=== PATIENT | male | born 1985 | race Caucasian/White ===

== ENCOUNTER 2018-03-02 18:29 | Inpatient (IN) ==
--- NOTE | 2018-03-02 19:05 | Emergency Department Note ---
Disposition Clinical Impression: Suicidal ideation Disposition: Still a Patient Condition: Fair Psych HPI - General Chief Complaint: ED Psychiatric Symptoms Stated Complaint: SI Time Seen by Provider: 03/02/18 18:50 Source: patient Mode of arrival: ambulatory Limitations: no limitations Nursing Notes Reviewed: Yes Vital Signs Reviewed: Yes - History of Present Illness HPI Narrative: 32-year-old male with a history of depression as well as suicide ideation the past presents for evaluation of suicidal ideations. Patient states that she has thought of killing himself with a gun. There is guns at home. Patient states he has been depressed over the past 4 days. Patient states he has a history of drug use in the past and was in rehabilitation until October. Patient states he been clean from cocaine since October. Denies any other drugs. Patient denies any homicidal ideation. Denies any hallucinations or delusions. Patient denies any chest pain shortness of breath. No fevers. No abdominal pain. No nausea or vomiting. Patient states that he has been on depression medications feels that there are not helping. Patient states he did have a knee scope done last week. States that he had a left knee that was drained by his orthopedic surgeon yesterday. There is no concerns for infection. Patient denies any increasing pain in that knee. Denies any pain with movement of the knee. - Related Data Home Medications Medication Instructions Recorded Confirmed Buspirone HCl 03/02/18 Cymbalta 03/02/18 Lisinopril 03/02/18 Naltrexone 03/02/18 traZODone 03/02/18 Allergies Allergy/AdvReac Type Severity Reaction Status Date / Time No Known Allergies Allergy Verified 03/02/18 18:34 All systems ED: reviewed and negative except as stated. Constitutional: Denies: fever Cardiovascular: Denies: chest pain Respiratory: Denies: cough, dyspnea Gastrointestinal: Denies: abdominal pain, nausea, vomiting Psychiatric: Reports: as per HPI Past Medical History - Past Medical History Source: patient Medical history: Reports: hypertension Psychiatric history: Reports: anxiety, depression - Social History Smoking Status: Never smoker Smokeless Tobacco Status: Yes Alcohol use: Reports: occasionally Drug use: Reports: none Physical Exam - General Limitations: no limitations General appearance: alert, in no apparent distress - Head Head exam: atraumatic - Eye Eye exam: Present: normal appearance, PERRL, EOMI, mydriasis - ENT ENT exam: normal exam, mucous membranes moist - Neck Neck exam: Present: normal inspection, trachea midline - Chest Chest inspection: Present: normal inspection, symmetric chest wall rise - Respiratory Respiratory exam: Present: normal lung sounds bilaterally. Absent: respiratory distress - Cardiovascular Cardiovascular exam: Present: regular rate, normal rhythm. Absent: systolic murmur - Abdominal Exam Abdominal exam: Present: soft, Non-Tender - Extremities Exam Extremities exam: Present: normal inspection, other (No signs of cutting or IV drug use). Absent: pedal edema - Expanded Lower Extremity Exam Hip/Pelvis exam: Present: normal inspection. Absent: tenderness Upper leg exam: Present: normal inspection. Absent: tenderness Knee exam: Present: other (No increased pain with movement of the knees. Left effusion of the left knee. No erythema.) Lower leg exam: Present: normal inspection. Absent: tenderness Ankle exam: Present: normal inspection. Absent: tenderness Foot/toe exam: Present: normal inspection. Absent: tenderness - Back Exam Back exam: Present: normal inspection - Neurological Exam Neurological exam: Present: alert - Skin Skin exam: Present: warm, dry, intact, normal color Course Course Narrative: Patient seen and examined. Patient's resting comfortably. Patient's vitals are stable. Patient will be medically cleared. Patient will get pink slipped given his concerns of suicidal ideation. Patient will evaluate [facility]. Disposition pending. - Reevaluation(s) Reevaluation #1: Patient states that he did have his knee drained by Dr. Girard yesterday. Patient is not on any antibiotics. We will attempt to gather the results of that arthrocentesis. Time: 20:13 - Consultations Consultation #1: Discussed the case with [facility]. Time: 19:55 Consultation #2: Patient will be admitted to [facility]. Time: 20:53 Vital Signs Temperature 99.3 F 03/02/18 18:31 Pulse Rate 97 03/02/18 18:31 Respiratory Rate 16 03/02/18 18:31 Blood Pressure 135/92 03/02/18 18:31 O2 Sat by Pulse Oximetry 98 03/02/18 18:31 Temperature 99.3 F 03/02/18 18:42 Pulse Rate 97 03/02/18 18:42 Respiratory Rate 16 03/02/18 18:42 Blood Pressure 135/92 03/02/18 18:42 O2 Sat by Pulse Oximetry 98 07/21/18 18:42 Oxygen Delivery Oxygen Delivery Room Air Psych - MDM Narrative Medical decision making narrative: Patient presents with a concerning history of suicidal ideation. Does have a planned using a gun. Patient does have guns at home. Patient is not able to elaborate on his depression during my exam. Patient labs reviewed. Patient does have a leukocytosis which is been present in the past. Patient does not have any clinical signs of pneumonia or any systemic infection. Patient does have a history of recent drainage of the left knee however the patient does not appear to clinically have septic arthritis of the patient can range the knees and full range of motion. Denies any increasing pain in the knees. At this point the white count is elevated but is nonspecific. Patient clinically as well and medically cleared and evaluated by psychiatry. - Lab Data Result diagrams: 03/02/18 19:10 03/02/18 19:10 Lab Results 03/02/18 03/02/18 03/02/18 Range/Units 19:05 19:05 19:10 WBC 17.8 H (4.3-11.1) K/mcL RBC 5.76 H (4.19-5.50) M/mcL Hgb 16.4 (12.9-16.9) g/dL Hct 47.3 (37.5-50.1) % MCV 82.1 L (83.0-100.0) fL MCH 28.5 (28.0-33.3) pg MCHC 34.7 (31.6-35.5) g/dL RDW 12.3 (11.5-14.5) % Plt Count 335 (140-400) K/mcL MPV 9.3 L (9.4-12.4) fL Immature Gran % 0.7 (0-4) % Seg Neutrophils % 64.0 % Lymphocytes % 26.9 % Monocytes % 7.3 % Eosinophils % 0.8 % Basophils % 0.3 % Neutrophils # 11.4 H (1.6-8.9) K/mcL Lymphocytes # 4.8 H (0.6-4.6) K/mcL Monocytes # 1.3 (0.0-1.3) K/mcL Eosinophils # 0.2 (0.0-0.6) K/mcL Basophils # 0.1 (0.0-0.2) K/mcL Sodium (136-145) mEq/L Potassium (3.5-5.1) mEq/L Chloride (98-107) mEq/L Carbon Dioxide (23-29) mEq/L BUN (6-20) mg/dL Creatinine (0.70-1.30) mg/dL Est GFR ( Amer) (> 60) Est GFR (Non-Af Amer) (> 60) BUN/Creatinine Ratio (6-26) Glucose (70-105) mg/dL Calculated Osmolality (280-300) Calcium (8.6-10.3) mg/dL Urine Color Dark Yellow (Yellow) Urine Clarity Clear (Clear) Urine pH 6.0 (5.0-8.0) pH Units Ur Specific Crosby > 1.030 H (1.010-1.025) Urine Protein Trace (Neg-Trace) mg/dL Urine Glucose (UA) Normal (Normal) mg/dL Urine Ketones Negative (Negative) mg/dL Urine Blood Negative (Negative) Urine Nitrite Negative (Negative) Urine Bilirubin Negative (Negative) Urine Urobilinogen Normal (Normal) mg/dL Ur Leukocyte Esterase Negative (Negative) Urine Microscopic RBC 3-5 H (0-3) per hpf Urine Microscopic WBC 0-3 (0-3) per hpf Ur Squamous Epith Cells Moderate H (None-Few) per lpf Urine Bacteria None Seen (None-Few) per hpf Hyaline Casts None Seen (None-Few) per lpf Salicylates (15.0-30.0) mg/dL Urine Opiates Screen Negative (Ccagjs=534) ng/mL Acetaminophen (10-20) mcg/mL Ur Barbiturates Screen Negative (Pqbdac=783) ng/mL Ur Phencyclidine Scrn Negative (Cutoff=25) ng/mL Ur Amphetamines Screen Negative (Eyuzus=6260) ng/mL U Benzodiazepines Scrn Negative (Xgkaak=309) ng/mL Urine Cocaine Screen Negative (Cutoff= 300) ng/mL U Marijuana (THC) Screen Negative (Cutoff = 50) ng/mL Ur Drug Screen Interp See Below Ethyl Alcohol (Less than 10) mg/dL 03/02/18 Range/Units 19:10 WBC (4.3-11.1) K/mcL RBC (4.19-5.50) M/mcL Hgb (12.9-16.9) g/dL Hct (37.5-50.1) % MCV (83.0-100.0) fL MCH (28.0-33.3) pg MCHC (31.6-35.5) g/dL RDW (11.5-14.5) % Plt Count (140-400) K/mcL MPV (9.4-12.4) fL Immature Gran % (0-4) % Seg Neutrophils % % Lymphocytes % % Monocytes % % Eosinophils % % Basophils % % Neutrophils # (1.6-8.9) K/mcL Lymphocytes # (0.6-4.6) K/mcL Monocytes # (0.0-1.3) K/mcL Eosinophils # (0.0-0.6) K/mcL Basophils # (0.0-0.2) K/mcL Sodium 136 (136-145) mEq/L Potassium 3.8 (3.5-5.1) mEq/L Chloride 104 (98-107) mEq/L Carbon Dioxide 25 (23-29) mEq/L BUN 17 (6-20) mg/dL Creatinine 1.07 (0.70-1.30) mg/dL Est GFR ( Amer) > 60 (> 60) Est GFR (Non-Af Amer) > 60 (> 60) BUN/Creatinine Ratio 16 (6-26) Glucose 98 (70-105) mg/dL Calculated Osmolality 284 (280-300) Calcium 9.4 (8.6-10.3) mg/dL Urine Color (Yellow) Urine Clarity (Clear) Urine pH (5.0-8.0) pH Units Ur Specific [place] (1.010-1.025) Urine Protein (Neg-Trace) mg/dL Urine Glucose (UA) (Normal) mg/dL Urine Ketones (Negative) mg/dL Urine Blood (Negative) Urine Nitrite (Negative) Urine Bilirubin (Negative) Urine Urobilinogen (Normal) mg/dL Ur Leukocyte Esterase (Negative) Urine Microscopic RBC (0-3) per hpf Urine Microscopic WBC (0-3) per hpf Ur Squamous Epith Cells (None-Few) per lpf Urine Bacteria (None-Few) per hpf Hyaline Casts (None-Few) per lpf Salicylates < 2.5 L (15.0-30.0) mg/dL Urine Opiates Screen (Wqynfo=657) ng/mL Acetaminophen < 10 L (10-20) mcg/mL Ur Barbiturates Screen (Ccceux=018) ng/mL Ur Phencyclidine Scrn (Cutoff=25) ng/mL Ur Amphetamines Screen (Jgntod=0770) ng/mL U Benzodiazepines Scrn (Tkhyje=737) ng/mL Urine Cocaine Screen (Cutoff= 300) ng/mL U Marijuana (THC) Screen (Cutoff = 50) ng/mL Ur Drug Screen Interp Ethyl Alcohol < 10 (Less than 10) mg/dL Psychiatric Medical Clearance - Medical Clearance Checklist Does the patient have a NEW psychiatric condition?: No Any abnormalities indicating possible medical illness?: No Any history of medical issues?: Yes Medical History: No Social History Section defined Any abnormal vital signs prior to transfer?: No Current Vitals: Last Vital Signs Temp 99.3 F 03/02/18 18:42 Pulse 97 03/02/18 18:42 Resp 16 03/02/18 18:42 BP 135/92 03/02/18 18:42 Pulse Ox 98 03/02/18 18:42 Is the patient intoxicated or cognitively impaired?: No Psychiatric Lab Panel: Drug Levels and Toxicity 03/02/18 03/02/18 19:05 19:10 Urine Opiates Screen Negative Acetaminophen < 10 L Ur Barbiturates Screen Negative Ur Phencyclidine Scrn Negative Ur Amphetamines Screen Negative U Benzodiazepines Scrn Negative Urine Cocaine Screen Negative U Marijuana (THC) Screen Negative Ethyl Alcohol < 10 Any abnormalities on the physical exam?: No Any abnormal labs?: No Abnormal Labs: Abnormal lab results WBC 17.8 K/mcL (4.3-11.1) H 03/02/18 19:10 RBC 5.76 M/mcL (4.19-5.50) H 03/02/18 19:10 MCV 82.1 fL (83.0-100.0) L 03/02/18 19:10 MPV 9.3 fL (9.4-12.4) L 03/02/18 19:10 Neutrophils # 11.4 K/mcL (1.6-8.9) H 03/02/18 19:10 Lymphocytes # 4.8 K/mcL (0.6-4.6) H 03/02/18 19:10 Ur Specific Crosby > 1.030 (1.010-1.025) H 03/02/18 19:05 Urine Microscopic RBC 3-5 per hpf (0-3) H 03/02/18 19:05 Ur Squamous Epith Cells Moderate per lpf (None-Few) H 03/02/18 19:05 Salicylates < 2.5 mg/dL (15.0-30.0) L 03/02/18 19:10 Acetaminophen < 10 mcg/mL (10-20) L 03/02/18 19:10 Does the patient require durable medical equiptment?: No Is the patient ambulatory?: Yes Is the patient a fall risk?: No Has the patient been medically cleared?: Yes Any acute medical condition require Tx prior to transfer?: No Attestation Statement - Attestation Attestation: I examined this patient and my medical decision-making was reviewed with the Resident Physician.Dr. Nunes. I agree with the documented findings, disposition and treatment plan as described except to the extent set forth below. Patient is a 32-year-old white male with a history of depression and anxiety who presents the emergency department with suicidal ideation with plan to shoot himself in the head. Patient states that he recently was discharged from drug redilatation from cocaine and has been doing well in regards to his substance abuse history. Patient states he started seeing a new psychiatrist and they have been making multiple changes with this medications and feels that since that time he has been having worsening depression and anxiety and terrible insomnia. Patient denies any hallucinations delusions. I agree with patient's physical exam findings as documented. Vital signs are stable patient's in no acute distress. Patient had full lab evaluation for medical clearance which showed a leukocytosis but no other abnormalities were noted. Patient was evaluated by one a and deemed that inpatient treatment would be beneficial for him. Hodges slip had been signed and placed on the chart medical clearance and in he will be admitted to 1 a for further psychiatric evaluation.
[2018-03-02 19:15] LABS: Bilirubin,Urine Negative (Negative); Blood,Urine Negative (Negative); Clarity,Urine Clear (Clear); Color,Urine Dark Yellow (Yellow); Glucose,Urine (UA) Normal (Normal); Ketones,Urine Negative (Negative); Leukocyte Esterase,Urine Negative (Negative); Nitrite,Urine Negative (Negative); Protein,Urine Trace mg/dL (Neg-Trace); Specific Gravity,Urine > 1.030 (1.010-1.025); Urobilinogen,Urine Normal (Normal)
[2018-03-02 19:19] LABS: Bacteria,Urine None Seen per hpf (None-Few); Hyaline Casts,Urine None Seen per lpf (None-Few); Squamous Epithelial Cell,Urine Moderate per lpf (None-Few); WBC,Urine 0-3 per hpf (0-3)
[2018-03-02 19:20] LABS: Basophils # 0.1 K/mcL (0.0-0.2); Basophils % 0.3 %; Eosinophils # 0.2 K/mcL (0.0-0.6); Eosinophils % 0.8 %; Hematocrit 47.3 % (37.5-50.1); Hemoglobin 16.4 g/dL (12.9-16.9); Immature Granulocytes % 0.7 % (0-4); Lymphocytes # 4.8 K/mcL (0.6-4.6); Lymphocytes % 26.9 %; Mean Corpuscular HGB Conc 34.7 g/dL (31.6-35.5); Mean Corpuscular Hemoglobin 28.5 pg (28.0-33.3); Mean Corpuscular Volume 82.1 fL (83.0-100.0); Mean Platelet Volume 9.3 fL (9.4-12.4); Monocytes # 1.3 K/mcL (0.0-1.3); Monocytes % 7.3 %; Neutrophils # 11.4 K/mcL (1.6-8.9); Platelet Count 335 K/mcL (140-400); Red Blood Count 5.76 M/mcL (4.19-5.50); Red Cell Distribution Width 12.3 % (11.5-14.5)
[2018-03-02 19:24] LABS: Amphetamine Screen,Urine Negative ng/mL (Cutoff=1000); Barbiturate Screen,Urine Negative ng/mL (Cutoff=200); Benzodiazepines Screen,Urine Negative ng/mL (Cutoff=200); Cannabinoid Screen,Urine Negative ng/mL (Cutoff = 50); Cocaine Screen,Urine Negative ng/mL (Cutoff= 300); Opiate Screen,Urine Negative ng/mL (Cutoff=300); Phencyclidine Screen,Urine Negative ng/mL (Cutoff=25)
[2018-03-02 19:43] LABS: Acetaminophen < 10 mcg/mL (10-20); BUN/Creatinine Ratio 16 (6-26); Blood Urea Nitrogen 17 mg/dL (6-20); Calcium 9.4 mg/dL (8.6-10.3); Carbon Dioxide 25 mEq/L (23-29); Chloride 104 mEq/L (98-107); Ethanol < 10 mg/dL (Less than 10); Glucose 98 mg/dL (70-105); Osmolality,Calculated 284 (280-300); Potassium 3.8 mEq/L (3.5-5.1); Salicylate < 2.5 mg/dL (15.0-30.0); Sodium 136 mEq/L (136-145); eGFR For African Americans > 60 (> 60); eGFR For Non-African Americans > 60 (> 60)
[2018-03-02] MEDS ORDERED: Haloperidol Lactate 5 MG/ML VIAL IM PRN (21:04)
[2018-03-02] MEDS ORDERED: MOM Conc 10 ML UD.LIQ PO PRN (21:04)
[2018-03-02] MEDS ORDERED: hydrOXYzine pamoate 25 MG CAPSULE PO PRN (21:04)
[2018-03-02] MEDS ORDERED: Mag Hydrox/Al Hydrox/Simeth 30 ML UDC PO PRN (21:04)
[2018-03-02] MEDS ORDERED: *HR* LORazepam 1 MG TABLET PO PRN (21:04)
[2018-03-02] MEDS ORDERED: *HR* LORazepam 2 MG/ML VIAL IM PRN (21:04)
[2018-03-02] MEDS ORDERED: traZODone 50 MG TABLET PO PRN (21:04)
[2018-03-02] MEDS: Ibuprofen 400 MG TABLET PO PRN (22:04)
[2018-03-03] MEDS: Ibuprofen 400 MG TABLET PO PRN ×2 (09:22→16:14)
--- NOTE | 2018-03-03 10:32 | Psychiatry History & Physical ---
Date of Encounter: 03/03/18 Time of Encounter: 10:29 History of Present Illness Patient Stated Chief Complaint: Suicidal ideation Medicare Admission Attestation: For traditional Medicare patients the provided hospital inpatient services are reasonable and necessary and in the case of services not specified as inpatient -only under 42 CFR 419.22 (n), that they are appropriately provided as inpatient services in accordance 42 CFR 412.3. For Critical Access Hospital the patient may reasonably be expected to be discharged or transferred to a hospital within 96 hours after admission to the Critical Access Hospital. Admitted From: Emergency Dept History of Present Illness: Mr. Winter is a 32 year old male admitted from the emergency department for suicidal ideation. Patient completed drug rehabilitation in October 2017 and maintained sobriety from cocaine. He reports have guilty feeling about his addiction and how it affected his family. Currently he does some farm work and also spent time with his children and maintaining his outpatient treatment. He reported poor sleep, mood swings and suicidal ideation. UDS was negative. No history of suicide attempts. Past Med Surg Social Fam HX - Past Medical History Medical history: hypertension - Past Psychiatric History Psychiatric history: Reports: bipolar - Social History Smoking Status: Never smoker Smokeless Tobacco Status: Yes Alcohol use: occasionally Drug use: none - Family History Mother Hx Family Cancer: Yes (Melonoma) Medications & Allergies Buspirone HCl [Buspar] 15 mg PO BID 03/02/18 [History] Duloxetine HCl [Cymbalta] 60 mg PO DAILY 03/02/18 [History] Lisinopril [Zestril] 5 mg PO DAILY 03/02/18 [History] Naltrexone HCl [Naltrexone HCl] 25 mg PO DAILY 03/02/18 [History] traZODone [TraZODone] 50 mg PO HS 03/02/18 [History] 3 Allergy/AdvReac Type Severity Reaction Status Date / Time No Known Allergies Allergy Verified 03/02/18 18:34 Review of Systems Psychiatric: Reports: abnormal sleep pattern, suicidal ideation, mood swings Exam - HEENT Head exam IM: Present: atraumatic Eye exam IM: Present: EOMI, normal appearance, PERRL ENT exam IM: Present: normal exam - Neurological Neurological exam: Present: CN II-XII intact - Respiratory Respiratory exam IM: Present: CTAB - GI/Abdominal GI/Abdominal exam IM: Present: normal bowel sounds, soft. Absent: tenderness - Extremities Extremities exam IM: Present: full ROM - Skin Skin exam IM: Present: dry, warm - Constitutional Vitals: Temp Pulse Resp BP Pulse Ox 98.0 F 90 18 134/100 98 03/02/18 21:39 03/02/18 21:39 03/02/18 21:39 03/02/18 21:39 03/02/18 18:42 General appearance: age & developmentally appropriate, well-groomed, well- nourished, average - Musculoskeletal Gait: normal Station: relaxed Strength & Tone: normal for patient - Psychiatric Patient Orientation: Yes Person, Yes Time, Yes Place Level of alertness: Alert Behavior: calm, cooperative Psychomotor activity: Slowed Eye Contact: Minimal Contact Mood Description: Euthymic/stable, Depressed, Anxious Affect description: congruent with mood, constricted Speech Volume: Normal Speech pattern: normal rate, normal rhythm, normal tone, fluent, spontaneous Language & Vocabulary: consistent with education Thought Process: Linear, Goal Oriented Thought Content: Yes Suicidal ideation, No Homicidal ideation, No Overt delusions Perceptual Disturbances: No Auditory hallucinations, No Visual hallucinations Attention Span Ability: Capable of Focused Attention Memory Description: Grossly Intact Patient Reliability: Reliable Historian Fund of knowledge: Yes abstraction ability, Yes average, Yes aware of current events Intelligence Estimate: Average Judgment: Limited Insight: Partial Results - Labs Labs: Laboratory Last Values WBC 17.8 K/mcL (4.3-11.1) H 03/02/18 19:10 RBC 5.76 M/mcL (4.19-5.50) H 03/02/18 19:10 Hgb 16.4 g/dL (12.9-16.9) 03/02/18 19:10 Hct 47.3 % (37.5-50.1) 03/02/18 19:10 MCV 82.1 fL (83.0-100.0) L 03/02/18 19:10 MCH 28.5 pg (28.0-33.3) 03/02/18 19:10 MCHC 34.7 g/dL (31.6-35.5) 03/02/18 19:10 RDW 12.3 % (11.5-14.5) 03/02/18 19:10 Plt Count 335 K/mcL (140-400) 03/02/18 19:10 MPV 9.3 fL (9.4-12.4) L 03/02/18 19:10 Immature Gran % 0.7 % (0-4) 03/02/18 19:10 Seg Neutrophils % 64.0 % 03/02/18 19:10 Lymphocytes % 26.9 % 03/02/18 19:10 Monocytes % 7.3 % 03/02/18 19:10 Eosinophils % 0.8 % 03/02/18 19:10 Basophils % 0.3 % 03/02/18 19:10 Neutrophils # 11.4 K/mcL (1.6-8.9) H 03/02/18 19:10 Lymphocytes # 4.8 K/mcL (0.6-4.6) H 03/02/18 19:10 Monocytes # 1.3 K/mcL (0.0-1.3) 03/02/18 19:10 Eosinophils # 0.2 K/mcL (0.0-0.6) 03/02/18 19:10 Basophils # 0.1 K/mcL (0.0-0.2) 03/02/18 19:10 Sodium 136 mEq/L (136-145) 03/02/18 19:10 Potassium 3.8 mEq/L (3.5-5.1) 03/02/18 19:10 Chloride 104 mEq/L (98-107) 03/02/18 19:10 Carbon Dioxide 25 mEq/L (23-29) 03/02/18 19:10 BUN 17 mg/dL (6-20) 03/02/18 19:10 Creatinine 1.07 mg/dL (0.70-1.30) 03/02/18 19:10 Est GFR ( Amer) > 60 (> 60) 03/02/18 19:10 Est GFR (Non-Af Amer) > 60 (> 60) 03/02/18 19:10 BUN/Creatinine Ratio 16 (6-26) 03/02/18 19:10 Glucose 98 mg/dL (70-105) 03/02/18 19:10 Calculated Osmolality 284 (280-300) 03/02/18 19:10 Calcium 9.4 mg/dL (8.6-10.3) 03/02/18 19:10 Urine Color Dark Yellow (Yellow) 03/02/18 19:05 Urine Clarity Clear (Clear) 03/02/18 19:05 Urine pH 6.0 pH Units (5.0-8.0) 03/02/18 19:05 Ur Specific [place] > 1.030 (1.010-1.025) H 03/02/18 19:05 Urine Protein Trace mg/dL (Neg-Trace) 03/02/18 19:05 Urine Glucose (UA) Normal mg/dL (Normal) 03/02/18 19:05 Urine Ketones Negative mg/dL (Negative) 03/02/18 19:05 Urine Blood Negative (Negative) 03/02/18 19:05 Urine Nitrite Negative (Negative) 03/02/18 19:05 Urine Bilirubin Negative (Negative) 03/02/18 19:05 Urine Urobilinogen Normal mg/dL (Normal) 03/02/18 19:05 Ur Leukocyte Esterase Negative (Negative) 03/02/18 19:05 Urine Microscopic RBC 3-5 per hpf (0-3) H 03/02/18 19:05 Urine Microscopic WBC 0-3 per hpf (0-3) 03/02/18 19:05 Ur Squamous Epith Cells Moderate per lpf (None-Few) H 03/02/18 19:05 Urine Bacteria None Seen per hpf (None-Few) 03/02/18 19:05 Hyaline Casts None Seen per lpf (None-Few) 03/02/18 19:05 Salicylates < 2.5 mg/dL (15.0-30.0) L 03/02/18 19:10 Urine Opiates Screen Negative ng/mL (Sbomfy=477) 03/02/18 19:05 Acetaminophen < 10 mcg/mL (10-20) L 03/02/18 19:10 Ur Barbiturates Screen Negative ng/mL (Nqsghd=919) 03/02/18 19:05 Ur Phencyclidine Scrn Negative ng/mL (Cutoff=25) 03/02/18 19:05 Ur Amphetamines Screen Negative ng/mL (Ksrgda=8488) 03/02/18 19:05 U Benzodiazepines Scrn Negative ng/mL (Fmmkqk=758) 03/02/18 19:05 Urine Cocaine Screen Negative ng/mL (Cutoff= 300) 03/02/18 19:05 U Marijuana (THC) Screen Negative ng/mL (Cutoff = 50) 03/02/18 19:05 Ur Drug Screen Interp See Below 03/02/18 19:05 Ethyl Alcohol < 10 mg/dL (Less than 10) 03/02/18 19:10 Assessment and Plan (1) Suicidal ideation Current visit: Yes Status: Acute Plan: Admit inpatient for safety and stabilization, Close observation, Suicide Precautions per unit protocol, Encourage participation in unit milieu, Group Therapy, Monitor sleep, Monitor appetite Additional Plan: Increase trazodone to 100 mg at bedtime and starte Depakote 250 mg twice daily. Risks, benefits, side effects, alternatives discussed w/pt: Yes Patient agreeable to treatment: Yes
[2018-03-03] MEDS: Divalproex (12 HR) 250 MG TABLET PO SCH (20:00)
[2018-03-03] MEDS: traZODone 50 MG TABLET PO SCH (20:01)
[2018-03-04] MEDS: Ibuprofen 400 MG TABLET PO PRN ×2 (03:24→11:02)
[2018-03-04] MEDS: NALTREXONE HCL 50 MG TABLET PO SCH (09:10)
[2018-03-04] MEDS: Divalproex (12 HR) 250 MG TABLET PO SCH ×2 (09:10→20:14)
--- NOTE | 2018-03-04 10:55 | Psychiatry Progress Note ---
Date of Encounter: 03/04/18 Time of Encounter: 10:53 Subjective Interval history: Patient seen and evaluated. Patient reports that since his medication change she reports he is feeling a little better he reports that he is not as anxious and depressed as he was when he first came in. Patient her inquired about when his discharge would be an discussed with the patient that he was having suicidal ideations yesterday patient did admit to this and was agreeable to further his hospitalization stay until he felt stable for discharge. Patient reports that he is tolerating current medication with no problems. Denied any safety concerns at the time of evaluation. Review of Systems Psychiatric: Reports: abnormal sleep pattern, suicidal ideation, difficulty concentrating Results - Vital Signs Vital Signs: Temp Pulse Resp BP Pulse Ox 97.5 F L 88 16 130/93 98 03/03/18 20:11 03/03/18 20:11 03/03/18 20:11 03/03/18 20:11 03/02/18 18:42 Assessment and Plan (1) Depression Current visit: Yes Status: Acute Plan: Continue hospitalization, Encourage participation in unit milieu, Group Therapy, Monitor sleep, Monitor appetite Risks, benefits, side effects, alternatives discussed w/pt: Yes Patient agreeable to treatment: Yes Qualifiers: Depression Type: major depressive disorder Major depression recurrence: recurrent Active/Remission status: currently active Major depression episode severity: moderate Qualified Code(s): F33.1 - Major depressive disorder, recurrent, moderate Consult Discharge Plan - Plan Additional Instructions: - continue current meds Referrals: NONE,PCP [Primary Care Provider] - Mike Hendrix MD [Family Provider] - Psychiatry Exam - Constitutional Vitals: Temp Pulse Resp BP Pulse Ox 97.5 F L 88 16 130/93 98 03/03/18 20:11 03/03/18 20:11 03/03/18 20:11 03/03/18 20:11 03/02/18 18:42 General appearance: age & developmentally appropriate, well-nourished - Musculoskeletal Gait: normal Strength & Tone: normal for patient - Psychiatric Patient Orientation: Yes Person, Yes Time, Yes Place, Yes Circumstance Level of alertness: Alert Behavior: nervous, anxious Psychomotor activity: Normal Eye Contact: Maintains Eye Contact Mood Description: Anxious, Labile Affect description: flat Speech Volume: Normal Speech pattern: normal rate, normal rhythm, normal tone Language & Vocabulary: consistent with education Thought Process: Intact, Logical, Linear, Goal Oriented Thought Content: Yes Suicidal ideation Attention Span Ability: Capable of Focused Attention, Capable of Sustained Attention Memory Description: Grossly Intact Patient Reliability: Reliable Historian Intelligence Estimate: Average Judgment: Fair Insight: Full
[2018-03-04] MEDS: Ibuprofen 400 MG TABLET PO SCH ×4 (13:59→20:13)
--- NOTE | 2018-03-04 15:31 | Orthopedic Consult Note ---
Date of Encounter: 03/04/18 Time of Encounter: 15:28 Assessment and Plan (1) Knee effusion, left Current Visit: Yes Status: Acute The diagnosis and treatment plan were discussed with the patient. He does have a recurrent knee effusion but this appears benign. He is no erythema or drainage and no pain with short arc range of motion of the knee. As he did have a recent surgery with Dr. Woodward, I will hold off on a repeat aspiration and have him follow-up with Dr. Woodward as scheduled. If he starts having erythema or drainage from the knee or other signs concerning for infection then we will reevaluate at that time. Recommend ice elevation and compression for his symptoms. History of Present Illness HPI: Mr. Winter is a 32 year old male admitted for SI with left knee swelling. Patient had a left knee arthroscopy with lateral release and debridement by Dr Woodward a few weeks ago. Had some swelling in the knee at his post op visit 2 days ago and the knee was aspirated. He was subsequently admitted for SI and it was found that the swelling returned. Orthopedics was then consulted for evaluation of the swelling. Denies fevers or chills. No calf pain or SOB. No erythema around the knee. No drainage from the knee. Pain free range of motion. No other ortho complaints. Past Med Surg Social Fam HX - Past Medical History Medical history: hypertension Psychiatric history: bipolar - Past Surgical History Additional surgical history: L knee repair - Social History Smoking Status: Never smoker Smokeless Tobacco Status: Yes Alcohol use: occasionally Drug use: none - Family History Mother Hx Family Cancer: Yes (Melonoma) Medications and Allergies Buspirone HCl [Buspar] 15 mg PO BID 03/02/18 [History] Duloxetine HCl [Cymbalta] 60 mg PO DAILY 03/02/18 [History] Lisinopril [Zestril] 5 mg PO DAILY 03/02/18 [History] Naltrexone HCl [Naltrexone HCl] 25 mg PO DAILY 03/02/18 [History] traZODone [TraZODone] 50 mg PO HS 03/02/18 [History] 3 Allergy/AdvReac Type Severity Reaction Status Date / Time No Known Allergies Allergy Verified 03/02/18 18:34 All Systems Reviewed: The remainder of the systems were reviewed and are negative except as noted in the HPI Physical Exam - Constitutional Vitals: Temp Pulse Resp BP Pulse Ox 97.4 F L 88 18 123/83 98 03/04/18 08:00 03/04/18 08:00 03/04/18 08:00 03/04/18 08:00 03/02/18 18:42 Exam: Consult Exam: Constitutional -Vitals reviewed -The patient is well developed and well nourished. Psychiatric -The patient is fully alert and oriented x 3. Respiratory: -Respiratory effort normal Abdomen: -Soft abdomen -Non tender -Non distended: Left upper extremity: -No deformities. The overlying skin is intact. No obvious signs of acute trauma. -Spontaneous ROM without pain -Sensation grossly intact to light touch throughout the median, radial, and ulnar distributions. -Radial pulse is present; Fingers have good capillary refill. Right upper extremity: -No deformities. The overlying skin is intact. No obvious signs of acute trauma. -Spontaneous ROM without pain -Sensation grossly intact to light touch throughout the median, radial, and ulnar distributions. -Radial pulse is present; Fingers have good capillary refill. Left lower extremity: -Incisions well healed with no surrounding erythema and no drainage -Effusion present -No pain with ROM of the knee -Able to dorsiflex and plantarflex the ankle and toes. -Sensation is grossly intact to light touch throughout the sural, saphenous, superficial peroneal, and deep peroneal distributions. -Toes have good capillary refill. Right lower extremity: -No deformities. The overlying skin is intact. No obvious signs of acute trauma. -No tenderness to palpation throughout. -No pain with passive motion of the hip, knee, ankle, and toes within the limits of the bed. -Able to dorsiflex and plantarflex the ankle and toes. -Sensation is grossly intact to light touch throughout the sural, saphenous, superficial peroneal, and deep peroneal distributions. -Toes have good capillary refill. Results - Labs Result Diagrams: 03/02/18 19:10 03/02/18 19:10 Labs: Abnormal lab results WBC 17.8 K/mcL (4.3-11.1) H 03/02/18 19:10 RBC 5.76 M/mcL (4.19-5.50) H 03/02/18 19:10 MCV 82.1 fL (83.0-100.0) L 03/02/18 19:10 MPV 9.3 fL (9.4-12.4) L 03/02/18 19:10 Neutrophils # 11.4 K/mcL (1.6-8.9) H 03/02/18 19:10 Lymphocytes # 4.8 K/mcL (0.6-4.6) H 03/02/18 19:10 Ur Specific Conrad > 1.030 (1.010-1.025) H 03/02/18 19:05 Urine Microscopic RBC 3-5 per hpf (0-3) H 03/02/18 19:05 Ur Squamous Epith Cells Moderate per lpf (None-Few) H 03/02/18 19:05 Salicylates < 2.5 mg/dL (15.0-30.0) L 03/02/18 19:10 Acetaminophen < 10 mcg/mL (10-20) L 03/02/18 19:10 All other labs normal. Consult Discharge Plan - Plan Referrals: NONE,PCP [Primary Care Provider] - Mike Hendrix MD [Family Provider] -
[2018-03-04] MEDS: traZODone 50 MG TABLET PO SCH (20:15)
[2018-03-05] MEDS: Ibuprofen 400 MG TABLET PO SCH ×6 (02:38→20:30)
[2018-03-05] MEDS: Divalproex (12 HR) 250 MG TABLET PO SCH ×2 (08:30→20:30)
[2018-03-05] MEDS: NALTREXONE HCL 50 MG TABLET PO SCH (09:14)
--- NOTE | 2018-03-05 10:32 | Psychiatry Progress Note ---
Date of Encounter: 03/05/18 Time of Encounter: 10:30 Review of Systems Psychiatric: Reports: anxiety, difficulty concentrating, irritability, mood swings Results - Vital Signs Vital Signs: Temp Pulse Resp BP Pulse Ox 98 F 90 15 126/78 98 03/05/18 09:00 03/05/18 09:00 03/05/18 09:00 03/05/18 09:00 03/02/18 18:42 Assessment and Plan (1) Depression Current visit: Yes Status: Acute Plan: Continue hospitalization, Encourage participation in unit milieu, Group Therapy Risks, benefits, side effects, alternatives discussed w/pt: Yes Patient agreeable to treatment: Yes Qualifiers: Depression Type: major depressive disorder Major depression recurrence: recurrent Active/Remission status: currently active Major depression episode severity: moderate Qualified Code(s): F33.1 - Major depressive disorder, recurrent, moderate Consult Discharge Plan - Plan Additional Instructions: - VPA level tomm am - dc tomm Referrals: [facility] [Other] - 03/14/18 10:00 am (Your above appointment is with Yong Dover for mental health and substance abuse counseling. Please bring photo ID and insurance card.) [facility] [Outside] - 03/11/18 9:30 am (The above appointment is with Sis Argueta CNP for psychiatric assessment and medication management. Please arrive 15 minutes early and bring photo ID and insurance card.) Psychiatry Exam - Constitutional Vitals: Temp Pulse Resp BP Pulse Ox 98 F 90 15 126/78 98 03/05/18 09:00 03/05/18 09:00 03/05/18 09:00 03/05/18 09:00 03/02/18 18:42 General appearance: age & developmentally appropriate - Musculoskeletal Gait: normal Strength & Tone: normal for patient - Psychiatric Patient Orientation: Yes Person, Yes Time, Yes Place, Yes Circumstance Level of alertness: Alert Behavior: calm, anxious Psychomotor activity: Normal Eye Contact: Maintains Eye Contact Mood Description: Anxious Affect description: congruent with mood Speech Volume: Normal Speech pattern: normal rate, normal rhythm, normal tone Language & Vocabulary: consistent with education Thought Process: Intact, Logical, Linear, Goal Oriented Thought Content: Yes Intact Attention Span Ability: Capable of Focused Attention, Capable of Sustained Attention Patient Reliability: Reliable Historian Intelligence Estimate: Average Judgment: Good Insight: Full
--- NOTE | 2018-03-05 10:40 | Discharge Summary ---
Date of Encounter: 03/06/18 Time of Encounter: 08:40 Diagnosis - Discharge Diagnosis (1) Depression Status: Acute Qualifiers: Depression Type: major depressive disorder Major depression recurrence: recurrent Active/Remission status: currently active Major depression episode severity: mild Qualified Code(s): F33.0 - Major depressive disorder, recurrent, mild Medications - Discharge Medications Prescriptions: Buspirone HCl [Buspar] 15 mg PO BID #30 tablet Divalproex (12 HR) [Depakote (12 HR)] 250 mg PO BID #60 tablet. Duloxetine HCl [Cymbalta] 60 mg PO DAILY #30 capsule. Lisinopril [Zestril] 5 mg PO DAILY #30 tablet Naltrexone HCl 25 mg PO DAILY #30 tablet traZODone [TraZODone] 100 mg PO HS #60 tablet Buspirone HCl [Buspar] 15 mg PO BID 03/02/18 [History] Lisinopril [Zestril] 5 mg PO DAILY 03/02/18 [History] Buspirone HCl [Buspar] 15 mg PO BID #30 tablet 03/06/18 [Rx] Divalproex (12 HR) [Depakote (12 HR)] 250 mg PO BID #60 tablet. 03/06/18 [Rx] Duloxetine HCl [Cymbalta] 60 mg PO DAILY #30 capsule. 03/06/18 [Rx] Lisinopril [Zestril] 5 mg PO DAILY #30 tablet 03/06/18 [Rx] Naltrexone HCl 25 mg PO DAILY #30 tablet 03/06/18 [Rx] traZODone [TraZODone] 100 mg PO HS #60 tablet 03/06/18 [Rx] 3 Allergy/AdvReac Type Severity Reaction Status Date / Time No Known Allergies Allergy Verified 03/02/18 18:34 Provider Date of admission: 03/02/18 21:01 Primary care physician: PCP NONE Consults: 03/04/18 12:00 Consult to Orthopedic Surgery [CONS] Routine Consulting Provider: [facility] Reason for Consult: Left swollen knee Time Notified: 12:30 Call Completed: Yes Discharging clinician: Heather Ferguson Psychiatry Exam - Constitutional Vitals: Temp Pulse Resp BP Pulse Ox 98 F 90 15 126/78 98 03/05/18 09:00 03/05/18 09:00 03/05/18 09:00 03/05/18 09:00 03/02/18 18:42 General appearance: age & developmentally appropriate - Musculoskeletal Gait: normal Strength & Tone: normal for patient - Psychiatric Patient Orientation: Yes Person, Yes Time, Yes Place, Yes Circumstance Level of alertness: Alert Behavior: calm, cooperative Psychomotor activity: Normal Eye Contact: Maintains Eye Contact Mood Description: Euthymic/stable Affect description: congruent with mood Speech Volume: Normal Speech pattern: normal rate, normal rhythm, normal tone, fluent Language & Vocabulary: consistent with education Thought Process: Intact Attention Span Ability: Capable of Focused Attention, Capable of Sustained Attention Memory Description: Grossly Intact, Immediate Intact Patient Reliability: Reliable Historian Fund of knowledge: Yes average Intelligence Estimate: Average Judgment: Fair Insight: Full Hospital Course Hospital course: Mr. Winter is a 32 year old male with past psychiatric hx of MDD admitted to inpatient psychiatric unit for safety and stabilization. He reports over the hospital course he has been feeling alot better and reports he is not feeling as sad and feels his mood has improved since admission. Throughtout the hosiptal course he was rstarted on home medications which he reports he was not compliant with prior to admission he was also started on depakote for mood sx's and trazodone was increased for insomnia. pt tolerated medication well and reported sleeping and eating well. denied any safety concerns and denied SI/HI and reports feeling more future orientated about his life plans. Pt reports he is very motivated and eager for discharge and looking forward to following up outpatient med mg and counseling. He participated in group therapy and did well in groups. Due to pt doing well and more stable since admission we discussed pt for discharge today. Time spent discussing smoking cessation with patient: 3 to 10 minutes Does patient wish to continue nicotine replacement upon disc: No - Time Spent with Patient Total time spent providing and/or coordinating discharge services: Less than 30 minutes Assessment and Plan - Patient/Caregiver Discharge Instructions Activity: resume usual activities as tolerated, return to work Diet: regular diet - Follow up Plan Follow up with: [place] [Other] - 03/14/18 10:00 am (Your above appointment is with Yong Dover for mental health and substance abuse counseling. Please bring photo ID and insurance card.) [facility] [Outside] - 03/11/18 9:30 am (The above appointment is with Sis Argueta CNP for psychiatric assessment and medication management. Please arrive 15 minutes early and bring photo ID and insurance card.) Functional capacity at discharge: independent ambulation Overall status at discharge: Stable Disposition: Home, Self-Care Quality - Multiple Antipsychotics Patient discharged on 2 or more antipsychotic medications: No Procedures - Procedures Procedures: Medication Management, Group Therapy, Psychoeducational Therapy
[2018-03-05] MEDS: traZODone 50 MG TABLET PO SCH (20:29)
[2018-03-06] MEDS: Ibuprofen 400 MG TABLET PO SCH ×4 (02:01→12:09)
[2018-03-06] MEDS: Divalproex (12 HR) 250 MG TABLET PO SCH (08:29)
[2018-03-06 08:30] VITALS: BP 114/84
[2018-03-06] MEDS: NALTREXONE HCL 50 MG TABLET PO SCH (10:12)
== END 2018-03-06 12:35 | disposition home or self-care (01) | DRG 885 ==
LOC: EMEROO 18:29 → 1ANU 21:01
PROVIDERS: ADMIT Psychiatry & Neurology Psychiatry; ATTEND Psychiatry & Neurology Psychiatry